=== PATIENT | female | born 1950 | race Caucasian/White ===

== ENCOUNTER 2017-06-09 12:46 | Observation (INO) | payer MEDICARE, OTHER ==
[2017-06-09 13:11] LABS: #Eosinphils 0.4 thou/uL (0.0-0.7); #Lymphocytes 2.1 thou/uL (1.20-3.40); #Monocytes 0.3 thou/uL (0.11-0.59); #Neutrophils 4.7 thou/uL (1.40-6.50); %Basophils 0.6 % (0.0-1.0); %Eosinophils 5.3 % (0.0-10.0); %Lymphocytes 27.5 % (21.0-51.0); %Monocytes 4.5 % (0.0-10.0); Hematocrit 41.7 % (36.0-47.0); Mean Platelet Volume 6.9 fL (7.4-10.4); Red Blood Cell (RBC) Count 4.22 mill/uL (4.20-5.40); White Blood Cell (WBC) Count 7.6 thou/uL (4.8-10.8)
[2017-06-09 13:19] LABS: ALT (SGPT) 42 U/L (8-55); AST (SGOT) 63 U/L (5-34); Alkaline Phosphatase 85 U/L (40-150); Anion Gap 13 mmol/L (10-20); BUN (Urea Nitrogen) 12 mg/dL (9.8-20.1); Bilirubin, Total 0.2 mg/dL (0.2-1.2); Calc. Creatinine Clearance 0 mL/min (70-130); Calcium 9.1 mg/dL (7.8-10.44); Carbon Dioxide 24 mmol/L (22-29); Chloride 110 mmol/L (98-107); Estimated GFR-MDRD 72; Globulin 2.5 g/dL (2.4-3.5); PTT 27.5 SEC (22.9-36.1); Protein, Total 6.2 g/dL (6.0-8.3); Prothrombin Time 12.9 SEC (12.0-14.7)
[2017-06-09 13:21] LABS: Troponin I Less than 0.010 ng/mL (< 0.028)
[2017-06-09 13:24] LABS: Bilirubin Negative (Negative); Blood, Urine Negative (Negative); Glucose, Urine (Dipstick) Negative (Negative); Ketone, Urine Trace mg/dL (Negative); Nitrite Positive (Negative); Protein, Urine (Dipstick) Negative (Neg-Trace); Urobilinogen 0.2 mg/dL (0.2-1.0)
[2017-06-09 13:36] LABS: Bacteria/HPF 4+ HPF (None Seen); Hyaline Casts/LPF 0-3 HYALINE CAST LPF (0-3 Hyaline); RBC/HPF 0-3 HPF (0-3); Squamous Epithelial None Seen HPF (0-3); WBC/HPF 21-50 HPF (0-3)
[2017-06-09 14:00] LABS: Amphetamine Not Detected (NotDetected); Methadone Not Detected (NotDetected); Methamphetamine Not Detected (NotDetected)
[2017-06-09] MEDS ORDERED: Lidocaine 1% w/Epinephrine 1:200K 30 ML VIAL ONE (14:28)
[2017-06-09] MEDS ORDERED: Adacel (T-DAP) 0.5 ML VIAL ONE (14:36)
[2017-06-09] MEDS ORDERED: HYDROcodone/Acetaminophen 10/325 mg Tablet ONE (14:36)
[2017-06-09] MEDS ORDERED: Sodium Chloride 0.9% 100 ML ONE (14:36)
[2017-06-09] MEDS ORDERED: cefTRIAXone\\ROCEPHIN 1 GM VIAL ONE (14:36)
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
--- NOTE | 2017-06-09 15:30 | RAD ---
AP CHEST: History: 61-year-old with chest pain. Date: 06-09-17 FINDINGS: EKG leads are seen over the chest. The lungs are well aerated. No evidence of active intrathoracic d isease seen. No evidence of effusions, pneumonia, or pneumothorax seen. IMPRESSION: Unremarkable AP chest. POS: [facility]
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
[2017-06-09] MEDS ORDERED: Fentanyl 100 MCG/2 ML VIAL ONE (16:28)
[2017-06-09] MEDS ORDERED: ISOVUE-370 76%-LOCM 1 ML ONE (16:45)
[2017-06-09] MEDS ORDERED: Dextrose 50% Abboject 50 ML SYRINGE SLOW IVP PRN (17:10)
[2017-06-09] MEDS ORDERED: traMADol HCl 50 MG TAB PO PRN ×2 (17:10)
[2017-06-09] MEDS ORDERED: Ondansetron ODT 4 MG TAB PO PRN (17:10)
[2017-06-09] MEDS ORDERED: Ondansetron HCl/PF 4 MG/2 ML Vial IVP PRN (17:10)
[2017-06-09] MEDS ORDERED: Dextrose 5% in Water 1,000 ML IV PRN (17:10)
[2017-06-09] MEDS: Sodium Chloride 0.9% 1,000 ML IV SCH (17:51)
[2017-06-09] MEDS: Acetaminophen 500 MG TAB PO SCH (17:52)
[2017-06-09 18:19] LABS: Magnesium 1.9 mg/dL (1.6-2.6); Phosphorus 3.6 mg/dL (2.3-4.7)
[2017-06-09 19:26] VITALS: BMI 31.4
[2017-06-09] MEDS: Nitrofurantoin Monohyd/M-Cryst 100 MG CAP PO SCH (21:54)
[2017-06-09] MEDS ORDERED: Ibuprofen 800 MG TAB PO SCH (22:00)
[2017-06-09] MEDS: Ibuprofen 600 MG TAB PO SCH (22:01)
[2017-06-10] MEDS: Acetaminophen 500 MG TAB PO SCH ×3 (00:32→12:11)
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
[2017-06-10] MEDS: Sodium Chloride 0.9% 1,000 ML IV SCH (03:30)
[2017-06-10 05:55] LABS: #Eosinphils 0.3 thou/uL (0.0-0.7); #Lymphocytes 1.7 thou/uL (1.20-3.40); #Monocytes 0.4 thou/uL (0.11-0.59); #Neutrophils 2.5 thou/uL (1.40-6.50); %Basophils 0.7 % (0.0-1.0); %Eosinophils 6.1 % (0.0-10.0); %Lymphocytes 34.9 % (21.0-51.0); %Monocytes 7.1 % (0.0-10.0); Hematocrit 35.6 % (36.0-47.0); Mean Platelet Volume 6.8 fL (7.4-10.4); Red Blood Cell (RBC) Count 3.57 mill/uL (4.20-5.40); White Blood Cell (WBC) Count 4.9 thou/uL (4.8-10.8)
[2017-06-10] MEDS: Ibuprofen 600 MG TAB PO SCH ×2 (05:56→15:03)
[2017-06-10 06:36] LABS: Anion Gap 9 mmol/L (10-20); BUN (Urea Nitrogen) 9 mg/dL (9.8-20.1); Calc. Creatinine Clearance 95 mL/min (70-130); Calcium 8.4 mg/dL (7.8-10.44); Carbon Dioxide 27 mmol/L (23-31); Chloride 111 mmol/L (98-107); Estimated GFR-MDRD 80; Magnesium 2.1 mg/dL (1.6-2.6); Phosphorus 3.3 mg/dL (2.3-4.7)
[2017-06-10] MEDS ORDERED: Hydrocortisone Sod Succ/PF 100 mg/2 ml Vial IVP SCH ×2 (07:30→16:00)
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
[2017-06-10] MEDS: Nitrofurantoin Monohyd/M-Cryst 100 MG CAP PO SCH (10:35)
[2017-06-10 13:20] VITALS: BP 88/58; TEMP 98.7
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
== END 2017-06-10 16:10 | disposition home or self-care (01) ==
LOC: ERS 12:46 → EDBD 12:46 → SURG A 17:03
PROVIDERS: ADMIT Surgery; ATTEND Surgery
DX: S22.42XA Multiple fractures of ribs, left side, initial encounter for closed fracture (principal); S00.01XA Abrasion of scalp, initial encounter; J44.9 Chronic obstructive pulmonary disease, unspecified; G62.9 Polyneuropathy, unspecified; Z98.51 Tubal ligation status; V48.5XXA Car driver injured in noncollision transport accident in traffic accident, initial encounter; Y92.410 Unspecified street and highway as the place of occurrence of the external cause
CPT/HCPCS: 70450; 71010 ×2; 71260; 72125; 74177; 80048; 80053; 80306; 80307; 82533; 82553; 83735 ×2; 83880; 84100 ×2; 84484; 85025 ×2; 85610; 85730; 86850; 86900; 86901; 90471; 90715; 93005; 94640 ×3; 96361 ×3; 96365; 96375; 97116; 97139; 99291; 99292; G0378; G8978; G8979; G8980; 36415; 81003; 81015; G0390; J0696; J1720; J3010; J7050; J7620